=== PATIENT | female | born 1995 | race American Indian/Alaskan Native ===

== ENCOUNTER 2024-04-24 23:10 | Emergency (ER) | payer SELFPAY ==
[~2024-04-24] VITALS: Ht 149.9 cm; Wt 57.6 kg
[2024-04-24 23:21] VITALS: PULSE 75; RESP 18; TEMP 97.1; O2SAT 98
== END 2024-04-24 23:56 | disposition home or self-care (01) ==
LOC: FSED 23:46
DX: R51.9 Headache, unspecified (principal); B34.9 Viral infection, unspecified; F32.A Depression, unspecified; Z11.52 Encounter for screening for COVID-19
CPT/HCPCS: 0223U; 87400; 99282

== ENCOUNTER 2024-05-08 11:49 | Emergency (ER) | payer SELFPAY ==
[~2024-05-08] VITALS: Ht 149.9 cm; Wt 57.6 kg
[2024-05-08 11:56] VITALS: PULSE 100; RESP 18; TEMP 98.2; O2SAT 98
[2024-05-08] MEDS ORDERED: AMOXICILLI400 MG/5 M PO (12:14)
[2024-05-08] MEDS: DEXAMETHASONE SOD PHOS INJ 4 MG/ML SDV IM ONE (12:20)
== END 2024-05-08 12:23 | disposition home or self-care (01) ==
LOC: FSED 11:53
DX: R05.9 Cough, unspecified (principal); J02.0 Streptococcal pharyngitis
CPT/HCPCS: 99282; J1100